=== PATIENT | male | born 1945 | race African-American/Black ===

== ENCOUNTER 2017-10-12 20:42 | Inpatient (IN) | payer MEDICARE, MEDICAID ==
[~2017-10-12] VITALS: Ht 165.1 cm; Wt 70.3 kg
[2017-10-12] MEDS ORDERED: SODIUM CHLORIDE 0.9% 1,000 ML IV ONE (22:17)
[2017-10-12] MEDS ORDERED: IBUPROFEN 400MG TABLET PO ONE (22:30)
[2017-10-12 23:38] LABS: BASOPHILS % 0.7 % (0.0-2.0); EOSINOPHILS % 1.5 % (0.0-5.0); LYMPHOCYTES % 35.4 % (20.0-50.0); MEAN CORPUSCULAR HEMOGLOBIN 29.1 pg (28.0-32.0); MEAN CORPUSCULAR VOLUME 89.8 fL (80.0-94.0); MEAN PLATELET VOLUME 10.8 fl (7.4-10.4); MONOCYTES % 12.6 % (2.0-8.0); NEUTROPHILS % 49.8 % (40.0-76.0); PLATELET 170 x1000/uL (130-400); RED BLOOD CELL COUNT 4.12 mill/uL (4.7-6.1); RED CELL DISTRIBUTION WIDTH 14.2 % (11.6-14.6)
[2017-10-12 23:46] LABS: CHLORIDE 102 mEq/L (98-107)
[2017-10-12 23:52] LABS: INR 1.1; PROTHROMBIN TIME 11.3 sec (9.4-11.6)
[2017-10-12 23:53] LABS: ETHANOL BLOOD < 10 mg/dL
[2017-10-13] MEDS ORDERED: POTASSIUM CHLORIDE 20MEQ TABLET SR PO ONE
[2017-10-13] MEDS ORDERED: ACETAMINOPHEN 325MG TABLET PO SCH (00:38)
[2017-10-13] MEDS ORDERED: ONDANSETRON 4MG ODT PO SCH (00:38)
[2017-10-13 01:23] LABS: CLARITY URINE CLEAR (CLEAR); COLOR URINE DARK YELLOW (YELLOW); KETONES URINE 1+ (NEGATIVE); LEUKOCYTE ESTERASE URINE TRACE (NEGATIVE); NITRITE URINE NEGATIVE (NEGATIVE); OCCULT BLOOD URINE NEGATIVE (NEGATIVE); PROTEIN URINE 3+ (NEGATIVE); SPECIFIC GRAVITY URINE 1.031 (1.005-1.030)
[2017-10-13 02:12] LABS: *AMPHETAMINES SCREEN URINE NEGATIVE (NEGATIVE); *BARBITURATES SCREEN URINE NEGATIVE (NEGATIVE); *BENZODIAZEPINES SCREEN URINE NEGATIVE (NEGATIVE); *COCAINE SCREEN URINE NEGATIVE (NEGATIVE); CANNABINOID URINE SCREEN NEGATIVE (NEGATIVE); PHENCYCLIDINE URINE SCREEN NEGATIVE (NEGATIVE)
[2017-10-13 02:13] LABS: METHADONE URINE SCREEN NEGATIVE (NEGATIVE); OPIATES URINE SCREEN PRESUMTIVE POSITIVE (NEGATIVE)
[2017-10-13] MEDS ORDERED: ACETAMINOPHEN 325MG TABLET PO ONE (05:15)
[2017-10-13 09:00] VITALS: BP 160/79
[2017-10-13] MEDS ORDERED: HYDROCODONE/ACETAMINOPHEN 5/325MG TABLET PO PRN (10:00)
[2017-10-13] MEDS ORDERED: IPRATROPIUM/ALBUTEROL 0.5-3(2.5)MG/3ML NEB INH PRN (10:00)
[2017-10-13] MEDS ORDERED: DIPHENHYDRAMINE 50MG/ML VIAL IV PRN (10:00)
[2017-10-13] MEDS ORDERED: ACETAMINOPHEN 325MG TABLET PO PRN (10:00)
[2017-10-13] MEDS ORDERED: NA PHOS,M-B/NA PHOS,DI-BA ENEMA 118ML PR PRN (10:00)
[2017-10-13] MEDS ORDERED: MAGNESIUM/ALUMINUM HYDROXIDE/SIMETHICONE 30ML UDC PO PRN (10:00)
[2017-10-13] MEDS ORDERED: ONDANSETRON HCL 4MG/2ML VIAL IV PRN (10:00)
[2017-10-13] MEDS ORDERED: CLONIDINE 0.1MG TABLET PO PRN (10:00)
[2017-10-13] MEDS ORDERED: ACETAMINOPHEN 650MG SUPP PR PRN (10:00)
[2017-10-13] MEDS ORDERED: ONDANSETRON 4MG ODT PO PRN (10:15)
[2017-10-13 12:56] LABS: HEMATOCRIT 38.9 % (42.0-52.0); HEMOGLOBIN 12.4 g/dL (14.0-18.0); MEAN CORPUSCULAR HEMOGLOBIN 28.9 pg (28.0-32.0); MEAN CORPUSCULAR VOLUME 90.7 fL (80.0-94.0); PLATELET 153 x1000/uL (130-400); RED BLOOD CELL COUNT 4.29 mill/uL (4.7-6.1); RED CELL DISTRIBUTION WIDTH 14.2 % (11.6-14.6)
[2017-10-13 13:23] LABS: CHLORIDE 101 mEq/L (98-107)
[2017-10-13] MEDS: ENOXAPARIN 40MG/0.4ML SYR SUBCUT SCH (13:37)
[2017-10-13 13:38] LABS: AMMONIA 12 uMol/L (<32)
[2017-10-13] MEDS: LEVOFLOXACIN 500MG PREMIX 100 ML IV SCH (15:54)
[2017-10-13] MEDS: SODIUM CHL 0.45% + KCL 20MEQ/L 1,000 ML IV SCH (15:54)
[2017-10-13 17:30] VITALS: BP 122/81
[2017-10-13 20:00] VITALS: BP 130/56
[2017-10-13] MEDS: MORPHINE SULFATE 4 MG/ML CPJ (NOT FOR IM USE) IV PRN (22:09)
[2017-10-14] VITALS: BP 161/82
[2017-10-14 04:00] VITALS: BP 147/81
[2017-10-14] MEDS: MORPHINE SULFATE 4 MG/ML CPJ (NOT FOR IM USE) IV PRN ×2 (06:18→12:18)
[2017-10-14 07:18] LABS: HEMATOCRIT. 35.5 % (42.0-52.0); HEMOGLOBIN. 11.7 g/dL (14.0-18.0); MEAN CORPUSCULAR HEMOGLOBIN 29.3 pg (28.0-32.0); MEAN CORPUSCULAR VOLUME 89.1 fL (80.0-94.0); MEAN PLATELET VOLUME 10.3 fl (7.4-10.4); PLATELET 140 x1000/uL (130-400); RED BLOOD CELL COUNT 3.98 mill/uL (4.7-6.1); RED CELL DISTRIBUTION WIDTH 13.7 % (11.6-14.6)
[2017-10-14 08:43] VITALS: BP 150/77
[2017-10-14 08:59] LABS: CHLORIDE 103 mEq/L (98-107)
[2017-10-14 09:06] LABS: LDL CHOLESTEROL 137 mg/dL (5-100)
[2017-10-14 09:08] LABS: HDL CHOLESTEROL 51 mg/dL (40-59); T4 FREE 1.01 ng/dL (0.76-1.46)
[2017-10-14] MEDS: SODIUM CHL 0.45% + KCL 20MEQ/L 1,000 ML IV SCH ×3 (09:16→11:30)
[2017-10-14] MEDS: ENOXAPARIN 40MG/0.4ML SYR SUBCUT SCH (09:20)
[2017-10-14 12:32] VITALS: BP 161/73
[2017-10-14 12:56] LABS: PLATELET ESTIMATE NORMAL
[2017-10-14] MEDS: LEVOFLOXACIN 500MG PREMIX 100 ML IV SCH (14:31)
[2017-10-14] MEDS ORDERED: NA PHOS,M-B/NA PHOS,DI-BA ENEMA 118ML PR SCH (17:15)
[2017-10-14] MEDS: METOCLOPRAMIDE HCL 10MG/2ML VIAL IV SCH (17:32)
[2017-10-14 20:03] VITALS: BP 148/80
[2017-10-15] VITALS (8 sets, daily range): BP systolic 127–168; BP diastolic 65–107
[2017-10-15] MEDS: METOCLOPRAMIDE HCL 10MG/2ML VIAL IV SCH ×4 (00:16→17:16)
[2017-10-15] MEDS: MORPHINE SULFATE 4 MG/ML CPJ (NOT FOR IM USE) IV PRN ×2 (00:30→20:50)
[2017-10-15] MEDS: ENOXAPARIN 40MG/0.4ML SYR SUBCUT SCH (09:25)
[2017-10-15] MEDS: LEVOFLOXACIN 500MG PREMIX 100 ML IV SCH (13:49)
[2017-10-15] MEDS ORDERED: POTASSIUM CHLORIDE 20MEQ TABLET SR PO NR (17:15)
[2017-10-15] MEDS: ATORVASTATIN CALCIUM 20MG TABLET PO SCH (20:50)
[2017-10-16] VITALS: BP 149/75
[2017-10-16] MEDS: METOCLOPRAMIDE HCL 10MG/2ML VIAL IV SCH ×4 (00:44→17:11)
[2017-10-16] MEDS: SODIUM CHL 0.45% + KCL 20MEQ/L 1,000 ML IV SCH (03:06)
[2017-10-16 04:27] VITALS: BP 127/75
[2017-10-16 06:40] LABS: HEMOGLOBIN. 12.4 g/dL (14.0-18.0); MEAN CORPUSCULAR VOLUME 88.6 fL (80.0-94.0); PLATELET 142 x1000/uL (130-400); RED BLOOD CELL COUNT 4.29 mill/uL (4.7-6.1); RED CELL DISTRIBUTION WIDTH 13.5 % (11.6-14.6)
[2017-10-16 07:15] LABS: CHLORIDE 104 mEq/L (98-107)
[2017-10-16 08:00] VITALS: BP 133/66
[2017-10-16 08:34] LABS: PLATELET ESTIMATE NORMAL
[2017-10-16] MEDS: ENOXAPARIN 40MG/0.4ML SYR SUBCUT SCH (08:35)
[2017-10-16] MEDS: MORPHINE SULFATE 4 MG/ML CPJ (NOT FOR IM USE) IV PRN ×2 (09:13→17:12)
[2017-10-16] MEDS ORDERED: HYDRALAZINE 20MG/ML VIAL IV PRN (10:45)
[2017-10-16 12:00] VITALS: BP 160/89
[2017-10-16] MEDS: LEVOFLOXACIN 500MG PREMIX 100 ML IV SCH (13:13)
[2017-10-16 16:00] VITALS: BP 115/74
[2017-10-16 20:00] VITALS: BP 142/85
[2017-10-16] MEDS: ATORVASTATIN CALCIUM 20MG TABLET PO SCH (21:15)
[2017-10-17] VITALS (7 sets, daily range): BP systolic 132–154; BP diastolic 66–91
[2017-10-17] MEDS: METOCLOPRAMIDE HCL 10MG/2ML VIAL IV SCH ×4 (00:34→18:00)
[2017-10-17] MEDS: MORPHINE SULFATE 4 MG/ML CPJ (NOT FOR IM USE) IV PRN ×3 (00:34→21:56)
[2017-10-17 06:34] LABS: CHLORIDE 105 mEq/L (98-107)
[2017-10-17 06:36] LABS: HEMATOCRIT 37.6 % (42.0-52.0); HEMOGLOBIN 12.9 g/dL (14.0-18.0); MEAN CORPUSCULAR HEMOGLOBIN 30.5 pg (28.0-32.0); MEAN CORPUSCULAR VOLUME 89.2 fL (80.0-94.0); PLATELET 158 x1000/uL (130-400); RED BLOOD CELL COUNT 4.22 mill/uL (4.7-6.1); RED CELL DISTRIBUTION WIDTH 13.1 % (11.6-14.6)
[2017-10-17] MEDS: ENOXAPARIN 40MG/0.4ML SYR SUBCUT SCH (09:07)
[2017-10-17] MEDS ORDERED: NA PHOS,M-B/NA PHOS,DI-BA ENEMA 118ML PR SCH (13:30)
[2017-10-17] MEDS ORDERED: BISACODYL 5MG TABLET PO PRN (13:45)
[2017-10-17] MEDS ORDERED: LEVOFLOXACIN 500MG TABLET PO SCH (14:00)
[2017-10-17] MEDS: ATORVASTATIN CALCIUM 20MG TABLET PO SCH (21:56)
== END 2017-10-17 23:40 | DRG 388 ==
LOC: ER 10-13 00:42 → OBSVTOIN 10-13 01:26 → INTOOBSV 10-13 01:26 → 6EST 10-13 01:26 → EDBEDREQSVC 10-13 01:29 → EDBEDREQ 10-13 01:29 → EDBEDREQTM 10-13 01:29 → ENRESERV 10-13 07:18 → 6WST 10-13 16:47
PROVIDERS: ADMIT Internal Medicine; ATTEND Internal Medicine
DX: K56.609 Unspecified intestinal obstruction, unspecified as to partial versus complete obstruction (principal); I50.23 Acute on chronic systolic (congestive) heart failure; N39.0 Urinary tract infection, site not specified; F20.0 Paranoid schizophrenia; F11.20 Opioid dependence, uncomplicated; I11.0 Hypertensive heart disease with heart failure; K56.7 Ileus, unspecified; E87.6 Hypokalemia; R00.1 Bradycardia, unspecified; I70.201 Unspecified atherosclerosis of native arteries of extremities, right leg; R26.9 Unspecified abnormalities of gait and mobility; D64.9 Anemia, unspecified; E78.5 Hyperlipidemia, unspecified; E80.6 Other disorders of bilirubin metabolism; Z87.81 Personal history of (healed) traumatic fracture
CPT/HCPCS: 36415; 70450; 71045; 74018; 74176; 80048; 80053; 80061; 80305; 81003; 82140; 83605; 83690; 83880; 84439; 84443; 84484; 85025; 85027; 85610; 93005; 93923; 93970; 97162; G0482; J1650; J1956; J2270; J2765; J3480; J7030; Q0162

== ENCOUNTER 2018-06-11 18:04 | Emergency (ER) | payer MEDICARE, MEDICAID ==
[~2018-06-11] VITALS: Ht 170.2 cm; Wt 70.0 kg
[2018-06-11] MEDS ORDERED: TRAMADOL 50MG TABLET PO ONE (18:45)
[2018-06-12 10:00] VITALS: BP 136/96
== END 2018-06-12 11:40 | disposition home or self-care (01) ==
LOC: ER 18:04
DX: M79.89 Other specified soft tissue disorders (principal); I11.0 Hypertensive heart disease with heart failure; I50.9 Heart failure, unspecified; F20.9 Schizophrenia, unspecified
CPT/HCPCS: 93970; 99284